=== PATIENT | male | born 1960 | race Caucasian/White ===

== ENCOUNTER 2021-02-06 21:33 | Emergency (ER) | payer OTHER ==
[~2021-02-06] VITALS: Ht 182.9 cm; Wt 122.5 kg
[2021-02-06 21:46] VITALS: BP_SYST 118
[2021-02-06] MEDS ORDERED: KETOROLAC TROMETHAMINE 60 MG/2 ML VIAL IM ONE (23:00)
[2021-02-06 23:47] LABS: BASOPHILS # (AUTO) 0.1 K/uL (0.0-0.2); BASOPHILS % (AUTO) 0.7 % (0.0-2.0); HEMATOCRIT 44.9 % (36-54); HEMOGLOBIN 15.6 g/dL (14.0-18.0); LYMPHOCYTES # (AUTO) 1.5 K/uL (1.0-5.5); LYMPHOCYTES % (AUTO) 14.1 % (20.5-51.5); MEAN CORPUSCULAR HEMOGLOBIN 31 pg (27-31); MEAN CORPUSCULAR HGB CONC 35 % (32-36); MEAN CORPUSCULAR VOLUME 90 fL (79.0-98.0); MONOCYTES # (AUTO) 0.5 K/uL (0.0-1.0); MONOCYTES % (AUTO) 5.1 % (1.7-9.3); NEUTROPHILS # (AUTO) 8.4 K/uL (1.8-7.7); NEUTROPHILS % (AUTO) 80.1 % (40.0-70.0); PLATELET COUNT (AUTO) 152 K/uL (130-430); WHITE BLOOD COUNT (AUTO) 10.5 K/uL (4.8-10.8)
[2021-02-06 23:53] LABS: CALCIUM 9.1 mg/dL (8.4-11.0); CREATININE 1.32 mg/dL (0.55-1.30); POTASSIUM 3.7 mmol/L (3.5-5.1)
[2021-02-06 23:58] LABS: INR 1.1 (0.80-1.20); PROTHROMBIN TIME 11.6 SECS (9.5-12.5)
[2021-02-06 23:59] LABS: ALBUMIN 3.5 g/dL (3.4-4.8); TOTAL BILIRUBIN 0.5 mg/dL (0.0-1.0)
[2021-02-07] MEDS ORDERED: VANCOMYCIN HCL 1,000 MG in NS 250 ML IV ONE (00:15)
[2021-02-07] MEDS ORDERED: VANCOMYCIN HCL 1000 MG/VIAL IV ONE (00:18)
[2021-02-07] MEDS ORDERED: CEPH250C PO ×2 (01:02)
[2021-02-07] MEDS ORDERED: SULF1TAB48 PO ×2 (01:02)
[2021-02-07] MEDS ORDERED: MORPHINE 4 MG INJ. 4 MG/ML VIAL IVP ONE (01:45)
[2021-02-07] MEDS ORDERED: MORPHINE 4 MG INJ. 4 MG/ML VIAL ONE (01:54)
[2021-02-07 02:31] VITALS: BP_SYST 118
[2021-02-08] MEDS ORDERED: HYDR-3917 PO (05:42)
[2021-02-08] MEDS ORDERED: ZAN4 PO (05:42)
== END 2021-02-07 02:31 | disposition home or self-care (01) ==
LOC: SED 21:33
DX: L03.115 Cellulitis of right lower limb (principal)
CPT/HCPCS: 36415; 80053; 85025; 85610; 85730; 87040; 93971; 96365; 96366; 96372; 96375; 99285; J1885; J2270; J3370

== ENCOUNTER 2021-02-08 02:31 | Inpatient (IN) | payer OTHER, SELFPAY ==
[~2021-02-08] VITALS: Ht 182.9 cm; Wt 122.5 kg
[~2021-02-08 02:31] MED LIST: CEPH250C PO; SULF1TAB48 PO
[2021-02-08 02:40] VITALS: BP_SYST 143
[2021-02-08] MEDS ORDERED: VANCOMYCIN HCL 1,000 MG in NS 250 ML IV ONE (04:15)
[2021-02-08] MEDS ORDERED: PIPERACILLIN/TAZO 3.375 GM in NS 50 ML IV ONE (04:15)
--- NOTE | 2021-02-08 04:45 | NUR ---
Patient to ER bed 2 to gown for evaluation. Side rails up.
--- NOTE | 2021-02-08 04:50 | NUR ---
Pt came into ER with complaint of right lower leg pain 10/10 with swelling and rash on lower leg extremity. Pt AAOX4 speaking full sentences.
--- NOTE | 2021-02-08 04:55 | NUR ---
ER at bedside examining patient.
--- NOTE | 2021-02-08 05:00 | NUR ---
# 20 gauge angiocath placed to LAC. Use of asceptic technique. Opsite placed over site. Blood return noted. Blood for lab drawn from site. Flushed with 10 cc of normal saline. No evidence of infiltration noted. Patient tolerated well.
--- NOTE | 2021-02-08 05:06 | NUR ---
Blood collected and sent to lab.
[2021-02-08] MEDS ORDERED: PIPERACILLIN/TAZOBACTAM 3.375 GM/VIAL (ZOSYN) IV ONE (05:12)
[2021-02-08] MEDS ORDERED: VANCOMYCIN HCL 1000 MG/VIAL IV ONE (05:12)
[2021-02-08 05:20] LABS: BASOPHILS % (AUTO) 0.4 % (0.0-2.0); EOSINOPHILS % (AUTO) 0.1 % (0.0-4.0); HEMATOCRIT 44.8 % (36-54); HEMOGLOBIN 15.4 g/dL (14.0-18.0); LYMPHOCYTES # (AUTO) 1.6 K/uL (1.0-5.5); LYMPHOCYTES % (AUTO) 15.8 % (20.5-51.5); MEAN CORPUSCULAR HEMOGLOBIN 31 pg (27-31); MEAN CORPUSCULAR HGB CONC 35 % (32-36); MEAN CORPUSCULAR VOLUME 90 fL (79.0-98.0); MONOCYTES # (AUTO) 0.8 K/uL (0.0-1.0); MONOCYTES % (AUTO) 7.2 % (1.7-9.3); NEUTROPHILS % (AUTO) 76.5 % (40.0-70.0); PLATELET COUNT (AUTO) 149 K/uL (130-430); RED BLOOD CELL COUNT(AUTO) 4.98 MIL/uL (4.2-6.2); WHITE BLOOD COUNT (AUTO) 10.4 K/uL (4.8-10.8)
[2021-02-08 05:34] LABS: CALCIUM 8.9 mg/dL (8.4-11.0); CREATININE 1.37 mg/dL (0.55-1.30); POTASSIUM 3.5 mmol/L (3.5-5.1)
[2021-02-08] MEDS ORDERED: ZAN4 PO (05:42)
[2021-02-08] MEDS ORDERED: HYDR-3917 PO (05:42)
--- NOTE | 2021-02-08 05:42 | NUR ---
Medication reconciliation completed with information provided by Huy HURD. Any prior medication reconciliation on file was reviewed and corrected.
[2021-02-08 05:45] LABS: ALBUMIN 3.2 g/dL (3.4-4.8); TOTAL BILIRUBIN 0.4 mg/dL (0.0-1.0)
[2021-02-08] MEDS ORDERED: KETOROLAC TROMETHAMINE 30 MG VIAL IVP ONE (05:45)
[2021-02-08] MEDS ORDERED: MORPHINE 4 MG INJ. 4 MG/ML VIAL IVP ONE (05:45)
[2021-02-08] MEDS ORDERED: NALOXONE HCL 0.4 MG/ML AMP (NARCAN) IVP PRN (08:15)
[2021-02-08] MEDS ORDERED: ACETAMINOPHEN 325 MG TABLET PO PRN ×2 (08:15→08:45)
[2021-02-08] MEDS ORDERED: NACL 0.9% 1,000 ML IV SCH (08:15)
[2021-02-08] MEDS ORDERED: ALBUTEROL SULFATE 0.083% 2.5 MG/3 ML VIAL.NEB INH PRN (08:15)
--- NOTE | 2021-02-08 08:50 | NUR ---
Patient will be admitted to care of Dr. Ramirez. Admitted to Medsurg unit. Will go to room 107B. Belongings list completed. Complete and up to date summary report printed. SBAR report to be given at bedside with opportunity for questions.
[2021-02-08 09:15] VITALS: BP_SYST 129
[2021-02-08] MEDS: ENOXAPARIN SODIUM 30 MG/0.3 ML SYRINGE SUBCUT SCH (09:25)
[2021-02-08] MEDS: MORPHINE 2 MG/ML INJ. SYRINGE IVP PRN ×2 (09:27→13:26)
--- NOTE | 2021-02-08 09:29 | NUR ---
Scheduled subq medication given. Patient medicated for 10/10 generalized pain as well. Patient stable at this time.
--- NOTE | 2021-02-08 09:55 | NUR ---
Patient resting comfortably in bed with eyes closed. No distress noted at this time.
--- NOTE | 2021-02-08 10:13 | NUR ---
CONSULTATION PAGED REASON FOR CONSULTATION:RULE OUT NEC FASCITES WAS CONSULT CALLED?Y PERSON WHO WAS NOTIFIED:JENI CONSULTING PHYSICIAN:FAVIAN MEDEL NUT SIFTER SPECIALTY:ID NUT SIFTER PHONE NUMBER:[phone] REQUESTING PHYSICIAN:VAHID DOMINIQUE
--- NOTE | 2021-02-08 11:05 | NUR ---
Patient asleep at this time. Stable.
--- NOTE | 2021-02-08 11:53 | NUR ---
CONSULTATION PAGED REASON FOR CONSULTATION:NEC FASCITIS WAS CONSULT CALLED?Y PERSON WHO WAS NOTIFIED:JULISSA CONSULTING PHYSICIAN: SHILA KINNEY TOOTH CUTTER PINION SPECIALTY:SURGEON TOOTH CUTTER PINION PHONE NUMBER:[phone] REQUESTING PHYSICIAN:DR TAYLOR
[2021-02-08] MEDS: PIPERACILLIN/TAZO 3.375/DEX-IS 50 ML IV SCH ×2 (12:09→17:11)
[2021-02-08 12:10] VITALS: BP_SYST 95
--- NOTE | 2021-02-08 12:10 | NUR ---
Scheduled IV abx given per order. Patient resting quietly in bed at this time.
--- NOTE | 2021-02-08 13:27 | NUR ---
Patient medicated for 10/10 generalized pain. Patient stable with family member at bedside.
--- NOTE | 2021-02-08 14:00 | NUR ---
Patient resting comfortably in bed at this time. States pain is subsiding /. Patient stable at this time.
--- NOTE | 2021-02-08 14:48 | NUR ---
PAGED PAGED VAHID DOMINIQUE AT [phone] SPOKE WITH ROSE MARIE.
--- NOTE | 2021-02-08 15:40 | NUR ---
Patient taken in stable condition for CT of right lower extremity.
[2021-02-08 16:15] VITALS: BP_SYST 132
--- NOTE | 2021-02-08 17:11 | NUR ---
Scheduled IV abx given per order. Patient requested medication for 10/10 right leg pain. Patient stable.
[2021-02-08] MEDS: MORPHINE 4 MG INJ. 4 MG/ML VIAL IVP PRN ×2 (17:19→21:24)
--- NOTE | 2021-02-08 17:20 | NUR ---
Patient medicated for 10/10 right leg pain. Patient stable with Dr. Ventura at bedside. Per doctor, elevate right leg.
[2021-02-08] MEDS: VANCOMYCIN HCL 1,250 MG in NS 250 ML IV SCH (17:48)
--- NOTE | 2021-02-08 17:55 | NUR ---
Scheduled IV abx given per order. Patient states pain is subsiding. Patient stable with at bedside.
--- NOTE | 2021-02-08 18:40 | NUR ---
Patient resting quietly in bed at this time. Patient stable since transfer to unit.
[2021-02-08 19:30] VITALS: BP_SYST 129
--- NOTE | 2021-02-08 19:45 | NUR ---
INITIAL NOTE AT INITIAL ASSESSMENT, PATIENT IS RESTING IN BED, STABLE, NO SIGNS OF RESPIRATORY DISTRESS. PATIENT VERBALIZES TOLERABLE PAIN. PLAN OF CARE FOR THE EVENING IS COMMUNICATED WITH THE PATIENT. PATIENT DEMONSTRATES CORRECT USAGE OF CALL LIGHT AT THIS TIME. BED IS LOCKED, ALARMED, AND AT THE LOWEST LEVEL. FALL SAFETY EDUCATION PROVIDED. FALL, SAFETY, AND RESPIRATORY PRECAUTIONS WILL BE TAKEN THROUGHOUT THE SHIFT.
[2021-02-09] VITALS: BP_SYST 120
[2021-02-09] MEDS: PIPERACILLIN/TAZO 3.375/DEX-IS 50 ML IV SCH ×5 (00:09→23:33)
[2021-02-09] MEDS: HYDROcodone/ACETAMIN 5-325 MG TAB (NORCO/ VICODIN) PO PRN ×2 (00:13→04:43)
[2021-02-09] MEDS: MORPHINE 4 MG INJ. 4 MG/ML VIAL IVP PRN ×2 (01:46→06:41)
[2021-02-09] MEDS: VANCOMYCIN HCL 1,250 MG in NS 250 ML IV SCH ×2 (05:17→18:33)
--- NOTE | 2021-02-09 06:40 | NUR ---
CLOSING NOTE PATIENT VERBALIZED THAT PRN MEDICATIONS GIVEN FOR PAIN WAS ABLE TO TAKE HIS PAIN DOWN TO PAIN LEVEL 5/10, WHICH HE STATES IS TOLERABLE PAIN. PATIENT SLEPT WELL THROUGHOUT THE SHIFT, NO SHORTNESS OF BREATH NOTED. AT THIS TIME, PATIENT IS RESTING IN BED, STABLE, NO SIGNS OF RESPIRATORY DISTRESS. CALL LIGHT IS WITHIN REACH. BED IS LOCKED, ALARMED, AND AT THE LOWEST LEVEL. FALL, SAFETY, AND RESPIRATORY PRECAUTIONS HAVE BEEN TAKEN THROUGHOUT THE SHIFT. WILL CONTINUE TO MONITOR UNTIL SHIFT REPORT IS GIVEN AT BEDSIDE TO AM NURSE.
[2021-02-09 07:30] LABS: ALBUMIN 2.2 g/dL (3.4-4.8); CALCIUM 8.1 mg/dL (8.4-11.0); CREATININE 1.12 mg/dL (0.55-1.30); TOTAL BILIRUBIN 0.7 mg/dL (0.0-1.0)
[2021-02-09 08:00] VITALS: BP_SYST 108
--- NOTE | 2021-02-09 08:48 | NUR ---
CONSULTATION PAGED REASON FOR CONSULTATION:CELLULITIS WAS CONSULT CALLED?Y PERSON WHO WAS NOTIFIED:ABIGAIL CONSULTING PHYSICIAN:FAVIAN MEDEL (SINDI HEREDIA COGNOS ANALYST) ORTHOTIC FINISH GRINDING TECHNICIAN SPECIALTY:INFECTIOUS DISEASE ORTHOTIC FINISH GRINDING TECHNICIAN PHONE NUMBER:[phone] REQUESTING PHYSICIAN:CELINE MANUEL
[2021-02-09] MEDS: ENOXAPARIN SODIUM 30 MG/0.3 ML SYRINGE SUBCUT SCH (08:50)
[2021-02-09] MEDS ORDERED: NALOXONE HCL 0.4 MG/ML AMP (NARCAN) IVP PRN ×2 (09:00)
[2021-02-09] MEDS ORDERED: HYDROcodone/ACETAMIN 5-325 MG TAB (NORCO/ VICODIN) PO PRN (09:00)
[2021-02-09] MEDS ORDERED: MORPHINE 2 MG/ML INJ. SYRINGE IVP PRN (09:00)
[2021-02-09 09:09] LABS: BASOPHILS % (AUTO) 0.4 % (0.0-2.0); EOSINOPHILS # (AUTO) 0.1 K/uL (0.0-0.4); EOSINOPHILS % (AUTO) 0.9 % (0.0-4.0); HEMOGLOBIN 13.2 g/dL (14.0-18.0); LYMPHOCYTES # (AUTO) 2.5 K/uL (1.0-5.5); LYMPHOCYTES % (AUTO) 24.7 % (20.5-51.5); MEAN CORPUSCULAR HEMOGLOBIN 30 pg (27-31); MEAN CORPUSCULAR HGB CONC 34 % (32-36); MEAN CORPUSCULAR VOLUME 90 fL (79.0-98.0); MONOCYTES % (AUTO) 10.2 % (1.7-9.3); NEUTROPHILS # (AUTO) 6.4 K/uL (1.8-7.7); NEUTROPHILS % (AUTO) 63.8 % (40.0-70.0); PLATELET COUNT (AUTO) 151 K/uL (130-430); RED BLOOD CELL COUNT(AUTO) 4.33 MIL/uL (4.2-6.2); RED CELL DISTRIBUTION WIDTH 14.3 % (9.0-15.0)
[2021-02-09] MEDS: FLUCONAZOLE 200 mg/ NS 100 ML IV SCH (11:32)
[2021-02-09] MEDS: OXYCODONE/ACETAMINOPHEN 5-325 TABLET PO PRN ×2 (11:33→18:33)
[2021-02-09 12:00] VITALS: BP_SYST 117
[2021-02-09 16:00] VITALS: BP_SYST 111
[2021-02-09] MEDS ORDERED: POTASSIUM CHLORIDE 20 MEQ TAB.PRT.SR PO ONE (19:15)
--- NOTE | 2021-02-09 19:20 | NUR ---
HIGH ALERT NOTE: Called Dr. Baker back at [phone] identified within the medical roster to verify physician authenticity.
--- NOTE | 2021-02-09 19:30 | NUR ---
CHANGE OF SHIFT; endorsed by day shift. IV antibiotic still in progress. came i for rt. leg cellulitis. no distress.
[2021-02-09 20:00] VITALS: BP_SYST 115
--- NOTE | 2021-02-09 20:00 | NUR ---
NOTES: pt. awake, alert. checked rt. leg swollen and skin discoloration, was just medicated for pain. on room air. urinal at bedside. IV site on left antecubital. call light at bedside.
--- NOTE | 2021-02-09 21:24 | NUR ---
NOTES: due medications given. IV on left ac to IV lock. call light within reach.
[2021-02-09 23:47] VITALS: BP_SYST 130
--- NOTE | 2021-02-09 23:52 | NUR ---
NOTES: pt. been dozing n and off. VS rechecked. due IV antibiotic start infusing.
[2021-02-10] MEDS: OXYCODONE/ACETAMINOPHEN 5-325 TABLET PO PRN ×2 (00:31→06:57)
--- NOTE | 2021-02-10 00:33 | NUR ---
NOTES: medicated with Percocet po for c/o rt. leg pain, elevated with pillow.
--- NOTE | 2021-02-10 03:30 | NUR ---
NOTES: pt. awakened with IV pump alarming. went back to sleep. continue to monitor,
[2021-02-10] MEDS: PIPERACILLIN/TAZO 3.375/DEX-IS 50 ML IV SCH (05:22)
[2021-02-10] MEDS: VANCOMYCIN HCL 1,250 MG in NS 250 ML IV SCH (06:05)
[2021-02-10 06:40] LABS: BASOPHILS % (AUTO) 0.4 % (0.0-2.0); EOSINOPHILS # (AUTO) 0.2 K/uL (0.0-0.4); HEMATOCRIT 38.7 % (36-54); HEMOGLOBIN 13.1 g/dL (14.0-18.0); LYMPHOCYTES # (AUTO) 1.7 K/uL (1.0-5.5); LYMPHOCYTES % (AUTO) 25.1 % (20.5-51.5); MEAN CORPUSCULAR HEMOGLOBIN 31 pg (27-31); MEAN CORPUSCULAR HGB CONC 34 % (32-36); MEAN CORPUSCULAR VOLUME 90 fL (79.0-98.0); MONOCYTES # (AUTO) 0.7 K/uL (0.0-1.0); NEUTROPHILS # (AUTO) 4.2 K/uL (1.8-7.7); NEUTROPHILS % (AUTO) 61.5 % (40.0-70.0); PLATELET COUNT (AUTO) 168 K/uL (130-430); WHITE BLOOD COUNT (AUTO) 6.8 K/uL (4.8-10.8)
[2021-02-10 07:07] LABS: CALCIUM 8.5 mg/dL (8.4-11.0); CREATININE 1.06 mg/dL (0.55-1.30); POTASSIUM 3.3 mmol/L (3.5-5.1)
[2021-02-10] MEDS: ENOXAPARIN SODIUM 30 MG/0.3 ML SYRINGE SUBCUT SCH (09:00)
[2021-02-10 09:14] LABS: ERYTHROCYTE SEDIMENTATION RATE 79 MM/HR (0-15)
[2021-02-10] MEDS ORDERED: AMOX-426 PO (09:20)
[2021-02-10] MEDS ORDERED: FLUC200T PO (09:20)
[2021-02-10] MEDS ORDERED: PERC10 PO (09:20)
[2021-02-10] MEDS ORDERED: HYDR-3927 PO (09:20)
[2021-02-10 10:06] VITALS: BP_SYST 108
[2021-02-10 10:16] LABS: C-REACTIVE PROTEIN QUANT 15.1 mg/dL (0-0.5)
[2021-02-10] MEDS: FLUCONAZOLE 200 mg/ NS 100 ML IV SCH (10:52)
--- NOTE | 2021-02-10 10:52 | NUR ---
Nutrition Update Leo Scale 17 noted. Pt admitted for cellulitis R foot. Diet: cardiac BMI: 36.6 kg/m2 RD to follow per nutrition care standards.
--- NOTE | 2021-02-10 11:11 | NUR ---
D/C Patient Patient given medication reconciliation form and D/C instructions. Exit Care provided. Patient verbalized understanding. MD discussed with patient the results and treatment provided. Ambulatory with steady gait for discharge to home. Patient in stable condition, ID band removed. IV catheter removed, intact and dressing applied, no active bleeding. Rx of Augmentin, [place], Percocet, Diflucan given. Patient educated on pain management. All belongings sent with patient.
== END 2021-02-10 11:11 | disposition home health service (06) | DRG 603 ==
LOC: SED 02:31 → SMU 05:27
PROVIDERS: ADMIT Internal Medicine Hospice and Palliative Medicine; ATTEND Internal Medicine Hospice and Palliative Medicine
DX: L03.115 Cellulitis of right lower limb (principal); B35.1 Tinea unguium; B36.9 Superficial mycosis, unspecified; N28.9 Disorder of kidney and ureter, unspecified; M77.31 Calcaneal spur, right foot; Z20.822 Contact with and (suspected) exposure to COVID-19
CPT/HCPCS: 36415; 73590-TC; 73700-TC; 76376; 80048; 80053; 80202; 83605; 85025; 85651-TC; 86140; 93970; 96365; 96367; 96375; 99285; J1450; J1650; J1885; J2270; J2543; J3370; J7050

== ENCOUNTER 2023-05-26 12:03 | Inpatient (IN) | payer OTHER ==
[~2023-05-26] VITALS: Ht 182.9 cm; Wt 128.8 kg
[~2023-05-26 12:03] MED LIST changes: -CEPH250C PO; +DOXY-244 PO; +HYDR-3927 PO; +PERC10 PO; -SULF1TAB48 PO; +VANC1PLA9 IV; +ZAN4 PO
[2023-05-26 12:13] VITALS: BP_SYST 136; PULSE 69; RESP 16; TEMP 97.8; O2SAT 98
[2023-05-26] MEDS ORDERED: KETOROLAC TROMETHAMINE 30 MG VIAL IVP ONE (14:15)
[2023-05-26] MEDS ORDERED: CEFAZOLIN 2 GM IVPB PREMIX 50 ML IV ONE (14:30)
[2023-05-26 14:44] LABS: BASOPHILS % (AUTO) 0.3 % (0.0-2.0); HEMATOCRIT 48.6 % (36-54); HEMOGLOBIN 15.9 g/dL (14.0-18.0); LYMPHOCYTES # (AUTO) 1.4 K/uL (1.0-5.5); LYMPHOCYTES % (AUTO) 11.7 % (20.5-51.5); MEAN CORPUSCULAR HEMOGLOBIN 30 pg (27-31); MEAN CORPUSCULAR HGB CONC 33 % (32-36); MEAN CORPUSCULAR VOLUME 90 fL (79.0-98.0); MONOCYTES # (AUTO) 0.6 K/uL (0.0-1.0); MONOCYTES % (AUTO) 5.2 % (1.7-9.3); NEUTROPHILS # (AUTO) 10.1 K/uL (1.8-7.7); NEUTROPHILS % (AUTO) 82.8 % (40.0-70.0); PLATELET COUNT (AUTO) 178 K/uL (130-430); RED BLOOD CELL COUNT(AUTO) 5.39 MIL/uL (4.2-6.2); RED CELL DISTRIBUTION WIDTH 14.8 % (9.0-15.0); WHITE BLOOD COUNT (AUTO) 12.2 K/uL (4.8-10.8)
[2023-05-26 14:54] LABS: ANION GAP 10 (5-15); CALCIUM 9.6 mg/dL (8.4-11.0); CARBON DIOXIDE 28 mmol/L (23-29); CHLORIDE 96 mmol/L (98-107); CREATININE 1.38 mg/dL (0.55-1.30); GFR AFRICAN AMERICAN 67 mL/min (>90); GLUCOSE 146 mg/dL (74-106); POTASSIUM 3.8 mmol/L (3.5-5.1); SODIUM SERUM 134 mmol/L (136-145); UREA NITROGEN, BLOOD 18 mg/dL (8-21)
[2023-05-26 15:01] LABS: ALANINE AMINOTRANSFERASE 55 U/L (12-78); ALBUMIN 3.8 g/dL (3.4-4.8); ASPARTATE AMINOTRANSFERASE 33 U/L (10-37); BILIRUBIN,DIRECT 0.2 mg/dL (0.0-0.3); GFR NON AFRICAN-AMERICAN 55 mL/min (>90); TOTAL BILIRUBIN 0.8 mg/dL (0.0-1.0); TOTAL PROTEIN, SERUM 8.4 g/dL (6.4-8.3)
[2023-05-26] MEDS ORDERED: NACL 0.9% 2,000 ML IV ONE (15:30)
[2023-05-26] MEDS ORDERED: ACETAMINOPHEN 650 MG/20.3 ML UDC GT PRN (17:15)
[2023-05-26] MEDS ORDERED: ACETAMINOPHEN 325 MG TABLET ONE (17:22)
[2023-05-26 20:00] VITALS: BP_SYST 136; PULSE 85; RESP 18; TEMP 97.9
[2023-05-26] MEDS ORDERED: HYDROcodone/ACETAMIN 5-325 MG TAB (NORCO/ VICODIN) PO PRN (20:45)
[2023-05-26] MEDS: 0.45% NACL 1,000 ML IV SCH (23:51)
[2023-05-26] MEDS ORDERED: cefTRIAXone 1 GM VIAL ONE (23:53)
[2023-05-26] MEDS ORDERED: VANCOMYCIN HCL 1000 MG/VIAL IV ONE (23:53)
[2023-05-27] VITALS (7 sets, daily range): BP systolic 99–127; PULSE 78–102; RESP 16–19; TEMP 98.1–102; O2SAT 93–96
[2023-05-27] MEDS: ACETAMINOPHEN 325 MG TABLET PO PRN ×3 (01:15→14:00)
[2023-05-27] MEDS: VANCOMYCIN HCL 1,000 MG in NS 250 ML IV SCH ×2 (02:11→11:13)
[2023-05-27 06:38] LABS: BASOPHILS % (AUTO) 0.3 % (0.0-2.0); HEMATOCRIT 39.6 % (36-54); HEMOGLOBIN 13.1 g/dL (14.0-18.0); LYMPHOCYTES # (AUTO) 1.2 K/uL (1.0-5.5); LYMPHOCYTES % (AUTO) 12.4 % (20.5-51.5); MEAN CORPUSCULAR HEMOGLOBIN 30 pg (27-31); MEAN CORPUSCULAR HGB CONC 33 % (32-36); MEAN CORPUSCULAR VOLUME 91 fL (79.0-98.0); MONOCYTES # (AUTO) 0.4 K/uL (0.0-1.0); MONOCYTES % (AUTO) 4.3 % (1.7-9.3); NEUTROPHILS # (AUTO) 8.1 K/uL (1.8-7.7); PLATELET COUNT (AUTO) 133 K/uL (130-430); RED BLOOD CELL COUNT(AUTO) 4.36 MIL/uL (4.2-6.2); RED CELL DISTRIBUTION WIDTH 14.4 % (9.0-15.0); WHITE BLOOD COUNT (AUTO) 9.8 K/uL (4.8-10.8)
[2023-05-27 07:11] LABS: ALBUMIN 2.7 g/dL (3.4-4.8); CALCIUM 8.4 mg/dL (8.4-11.0); CREATININE 1.19 mg/dL (0.55-1.30); POTASSIUM 3.7 mmol/L (3.5-5.1); TOTAL BILIRUBIN 0.4 mg/dL (0.0-1.0); TOTAL PROTEIN, SERUM 6.4 g/dL (6.4-8.3)
[2023-05-27] MEDS ORDERED: ONDANSETRON HCL 4 MG/2 ML VIAL IVP PRN (08:00)
[2023-05-27] MEDS ORDERED: LORazepam 2 MG/ML VIAL IVP PRN (08:00)
[2023-05-27] MEDS ORDERED: ACETAMINOPHEN 325 MG TABLET PO PRN (08:00)
[2023-05-27] MEDS ORDERED: HYDROcodone/ACETAMIN 5-325 MG TAB (NORCO/ VICODIN) PO PRN (08:00)
[2023-05-27] MEDS ORDERED: NALOXONE HCL 0.4 MG/ML AMP (NARCAN) IVP PRN ×2 (08:00)
[2023-05-27] MEDS: HYDROcodone/ACETAMIN 5-325 MG TAB (NORCO/ VICODIN) PO PRN (11:12)
[2023-05-27] MEDS: 0.45% NACL 1,000 ML IV SCH ×2 (13:57→22:06)
[2023-05-27] MEDS: NORMAL SALINE 5 ML DISP.SYRIN IVF SCH ×2 (13:57→21:13)
[2023-05-27] MEDS ORDERED: IBUPROFEN 600 MG TABLET PO PRN (20:45)
[2023-05-28 00:21] VITALS: BP_SYST 101; PULSE 70; RESP 19; TEMP 98.2; O2SAT 95
[2023-05-28] MEDS: VANCOMYCIN HCL 1,000 MG in NS 250 ML IV SCH ×2 (01:26→11:27)
[2023-05-28] MEDS: HYDROcodone/ACETAMIN 5-325 MG TAB (NORCO/ VICODIN) PO PRN ×4 (03:50→20:29)
[2023-05-28] MEDS: NORMAL SALINE 5 ML DISP.SYRIN IVF SCH ×2 (06:17→14:10)
[2023-05-28 06:21] LABS: BASOPHILS % (AUTO) 0.4 % (0.0-2.0); EOSINOPHILS % (AUTO) 0.5 % (0.0-4.0); HEMOGLOBIN 13.6 g/dL (14.0-18.0); LYMPHOCYTES # (AUTO) 1.9 K/uL (1.0-5.5); LYMPHOCYTES % (AUTO) 23.3 % (20.5-51.5); MEAN CORPUSCULAR HEMOGLOBIN 29 pg (27-31); MEAN CORPUSCULAR HGB CONC 32 % (32-36); MEAN CORPUSCULAR VOLUME 91 fL (79.0-98.0); MONOCYTES # (AUTO) 0.7 K/uL (0.0-1.0); MONOCYTES % (AUTO) 8.8 % (1.7-9.3); NEUTROPHILS # (AUTO) 5.5 K/uL (1.8-7.7); PLATELET COUNT (AUTO) 140 K/uL (130-430); RED BLOOD CELL COUNT(AUTO) 4.63 MIL/uL (4.2-6.2); RED CELL DISTRIBUTION WIDTH 14.6 % (9.0-15.0); WHITE BLOOD COUNT (AUTO) 8.1 K/uL (4.8-10.8)
[2023-05-28 06:48] LABS: CREATININE 1.06 mg/dL (0.55-1.30); POTASSIUM 3.6 mmol/L (3.5-5.1)
[2023-05-28 08:30] VITALS: BP_SYST 123; PULSE 80; RESP 18; TEMP 97.5; O2SAT 95
[2023-05-28] MEDS: 0.45% NACL 1,000 ML IV SCH ×2 (08:43→15:15)
[2023-05-28 10:33] VITALS: O2SAT 95
[2023-05-28 12:16] VITALS: BP_SYST 121; PULSE 70; RESP 16; TEMP 98.2; O2SAT 95
[2023-05-28] MEDS: PIPERACILLIN/TAZO 4.5GM/DEX-IS 100 ML IV SCH ×2 (14:11→23:11)
[2023-05-28 16:45] VITALS: BP_SYST 117; PULSE 67; RESP 18; TEMP 98.7; O2SAT 97
[2023-05-28 20:00] VITALS: BP_SYST 121; PULSE 72; RESP 18; TEMP 98.5; O2SAT 96; O2SAT 97
[2023-05-28] MEDS: VANCOMYCIN HCL 1,250 MG in NS 250 ML IV SCH (20:49)
[2023-05-29] VITALS: BP_SYST 103; PULSE 82; RESP 16; TEMP 97.4; O2SAT 97
[2023-05-29] MEDS: NORMAL SALINE 5 ML DISP.SYRIN IVF SCH ×4 (00:51→23:17)
[2023-05-29] MEDS: 0.45% NACL 1,000 ML IV SCH ×3 (00:52→15:39)
[2023-05-29] MEDS: VANCOMYCIN HCL 1,250 MG in NS 250 ML IV SCH ×3 (03:33→21:01)
[2023-05-29 06:08] LABS: BASOPHILS % (AUTO) 0.5 % (0.0-2.0); EOSINOPHILS # (AUTO) 0.1 K/uL (0.0-0.4); EOSINOPHILS % (AUTO) 2.2 % (0.0-4.0); HEMOGLOBIN 12.7 g/dL (14.0-18.0); LYMPHOCYTES # (AUTO) 1.8 K/uL (1.0-5.5); LYMPHOCYTES % (AUTO) 26.7 % (20.5-51.5); MEAN CORPUSCULAR HEMOGLOBIN 29 pg (27-31); MEAN CORPUSCULAR HGB CONC 33 % (32-36); MEAN CORPUSCULAR VOLUME 90 fL (79.0-98.0); MONOCYTES # (AUTO) 0.7 K/uL (0.0-1.0); MONOCYTES % (AUTO) 10.7 % (1.7-9.3); NEUTROPHILS % (AUTO) 59.9 % (40.0-70.0); PLATELET COUNT (AUTO) 151 K/uL (130-430); RED BLOOD CELL COUNT(AUTO) 4.32 MIL/uL (4.2-6.2); RED CELL DISTRIBUTION WIDTH 14.6 % (9.0-15.0); WHITE BLOOD COUNT (AUTO) 6.6 K/uL (4.8-10.8)
[2023-05-29] MEDS: PIPERACILLIN/TAZO 4.5GM/DEX-IS 100 ML IV SCH ×3 (06:20→23:16)
[2023-05-29 06:42] LABS: ALBUMIN 2.4 g/dL (3.4-4.8); CALCIUM 8.7 mg/dL (8.4-11.0); CREATININE 1.07 mg/dL (0.55-1.30); POTASSIUM 3.5 mmol/L (3.5-5.1); TOTAL BILIRUBIN 0.4 mg/dL (0.0-1.0); TOTAL PROTEIN, SERUM 6.3 g/dL (6.4-8.3)
[2023-05-29 08:00] VITALS: BP_SYST 139; PULSE 85; RESP 16; TEMP 98.4; O2SAT 97
[2023-05-29] MEDS: HYDROcodone/ACETAMIN 5-325 MG TAB (NORCO/ VICODIN) PO PRN ×3 (08:26→21:11)
[2023-05-29] MEDS ORDERED: TRIAMCINOLONE ACETONIDE 0.025% 80 GM CREAM.GM. TP ONE (10:30)
[2023-05-29 16:00] VITALS: BP_SYST 127; PULSE 73; RESP 16; TEMP 98.2; O2SAT 96
[2023-05-29 20:00] VITALS: BP_SYST 129; PULSE 76; RESP 18; TEMP 98.6; O2SAT 98
[2023-05-29] MEDS: TRIAMCINOLONE ACETONIDE 0.025% 80 GM CREAM.GM. TP SCH (21:13)
[2023-05-30] VITALS: BP_SYST 121; PULSE 72; RESP 16; TEMP 98.6; O2SAT 96
[2023-05-30] MEDS: VANCOMYCIN HCL 1,250 MG in NS 250 ML IV SCH ×2 (04:37→11:25)
[2023-05-30] MEDS ORDERED: NORMAL SALINE 5 ML DISP.SYRIN IVF SCH (06:00)
[2023-05-30] MEDS: PIPERACILLIN/TAZO 4.5GM/DEX-IS 100 ML IV SCH ×3 (06:21→23:10)
[2023-05-30] MEDS: NORMAL SALINE 5 ML DISP.SYRIN IVF SCH ×3 (06:21→22:56)
[2023-05-30] MEDS: HYDROcodone/ACETAMIN 5-325 MG TAB (NORCO/ VICODIN) PO PRN ×3 (06:25→20:33)
[2023-05-30 07:28] LABS: CALCIUM 8.4 mg/dL (8.4-11.0); CREATININE 0.97 mg/dL (0.55-1.30); POTASSIUM 3.8 mmol/L (3.5-5.1)
[2023-05-30 07:47] VITALS: BP_SYST 126; PULSE 81; RESP 16; TEMP 98.8; O2SAT 95
[2023-05-30 08:08] LABS: BASOPHILS % (AUTO) 0.6 % (0.0-2.0); EOSINOPHILS # (AUTO) 0.2 K/uL (0.0-0.4); EOSINOPHILS % (AUTO) 2.6 % (0.0-4.0); HEMATOCRIT 40.9 % (36-54); HEMOGLOBIN 13.2 g/dL (14.0-18.0); LYMPHOCYTES # (AUTO) 1.8 K/uL (1.0-5.5); MEAN CORPUSCULAR HEMOGLOBIN 30 pg (27-31); MEAN CORPUSCULAR HGB CONC 32 % (32-36); MEAN CORPUSCULAR VOLUME 91 fL (79.0-98.0); MONOCYTES # (AUTO) 0.6 K/uL (0.0-1.0); MONOCYTES % (AUTO) 8.5 % (1.7-9.3); NEUTROPHILS # (AUTO) 4.8 K/uL (1.8-7.7); NEUTROPHILS % (AUTO) 64.3 % (40.0-70.0); PLATELET COUNT (AUTO) 198 K/uL (130-430); RED BLOOD CELL COUNT(AUTO) 4.49 MIL/uL (4.2-6.2); RED CELL DISTRIBUTION WIDTH 14.6 % (9.0-15.0); WHITE BLOOD COUNT (AUTO) 7.4 K/uL (4.8-10.8)
[2023-05-30 08:20] LABS: ERYTHROCYTE SEDIMENTATION RATE 21 MM/HR (0-15)
[2023-05-30] MEDS: TRIAMCINOLONE ACETONIDE 0.025% 80 GM CREAM.GM. TP SCH ×2 (09:09→20:33)
[2023-05-30 11:22] VITALS: BP_SYST 133; PULSE 70; RESP 14; TEMP 98; O2SAT 97
[2023-05-30 15:58] VITALS: BP_SYST 141; PULSE 79; RESP 16; TEMP 98; O2SAT 97
[2023-05-30] MEDS ORDERED: DIPHENHYDRAMINE HCL 50 MG CAPSULE ONE (16:55)
[2023-05-30] MEDS: DAPTOmycin 700 MG in NS 50 ML IV SCH (17:42)
[2023-05-30 20:00] VITALS: BP_SYST 136; PULSE 61; RESP 20; TEMP 97.4; O2SAT 98
[2023-05-30] MEDS: DIPHENHYDRAMINE HCL 25 MG CAPSULE PO PRN (23:11)
[2023-05-31] VITALS (7 sets, daily range): BP systolic 125–137; PULSE 61–93; RESP 18–20; TEMP 96.2–98.1; O2SAT 96–98
[2023-05-31] MEDS: NORMAL SALINE 5 ML DISP.SYRIN IVF SCH ×3 (06:02→21:24)
[2023-05-31] MEDS: HYDROcodone/ACETAMIN 5-325 MG TAB (NORCO/ VICODIN) PO PRN ×4 (06:03→20:21)
[2023-05-31] MEDS: PIPERACILLIN/TAZO 4.5GM/DEX-IS 100 ML IV SCH ×3 (06:49→21:17)
[2023-05-31 06:55] LABS: CALCIUM 8.5 mg/dL (8.4-11.0); CREATININE 0.94 mg/dL (0.55-1.30); POTASSIUM 3.4 mmol/L (3.5-5.1)
[2023-05-31 07:01] LABS: BASOPHILS % (AUTO) 0.4 % (0.0-2.0); EOSINOPHILS # (AUTO) 0.3 K/uL (0.0-0.4); EOSINOPHILS % (AUTO) 3.3 % (0.0-4.0); HEMATOCRIT 38.8 % (36-54); HEMOGLOBIN 12.7 g/dL (14.0-18.0); LYMPHOCYTES # (AUTO) 1.7 K/uL (1.0-5.5); LYMPHOCYTES % (AUTO) 21.4 % (20.5-51.5); MEAN CORPUSCULAR HEMOGLOBIN 30 pg (27-31); MEAN CORPUSCULAR HGB CONC 33 % (32-36); MEAN CORPUSCULAR VOLUME 90 fL (79.0-98.0); MONOCYTES # (AUTO) 0.6 K/uL (0.0-1.0); MONOCYTES % (AUTO) 7.5 % (1.7-9.3); NEUTROPHILS # (AUTO) 5.5 K/uL (1.8-7.7); NEUTROPHILS % (AUTO) 67.4 % (40.0-70.0); PLATELET COUNT (AUTO) 235 K/uL (130-430); RED BLOOD CELL COUNT(AUTO) 4.31 MIL/uL (4.2-6.2); RED CELL DISTRIBUTION WIDTH 14.6 % (9.0-15.0); WHITE BLOOD COUNT (AUTO) 8.2 K/uL (4.8-10.8)
[2023-05-31 07:31] LABS: ERYTHROCYTE SEDIMENTATION RATE 59 MM/HR (0-15)
[2023-05-31] MEDS: TRIAMCINOLONE ACETONIDE 0.025% 80 GM CREAM.GM. TP SCH ×2 (08:42→20:19)
[2023-05-31] MEDS ORDERED: POTASSIUM CHLORIDE 20 MEQ TABLET.ER PO ONE (11:00)
[2023-05-31] MEDS: DAPTOmycin 700 MG in NS 50 ML IV SCH (17:36)
[2023-05-31] MEDS: DIPHENHYDRAMINE HCL 25 MG CAPSULE PO PRN (23:20)
[2023-06-01] VITALS: BP_SYST 126; PULSE 74; RESP 18; TEMP 97.8; O2SAT 94
[2023-06-01] MEDS: PIPERACILLIN/TAZO 4.5GM/DEX-IS 100 ML IV SCH ×3 (05:26→22:00)
[2023-06-01] MEDS: NORMAL SALINE 5 ML DISP.SYRIN IVF SCH ×4 (05:26→22:12)
[2023-06-01 05:30] LABS: ERYTHROCYTE SEDIMENTATION RATE 42 MM/HR (0-15)
[2023-06-01] MEDS: HYDROcodone/ACETAMIN 5-325 MG TAB (NORCO/ VICODIN) PO PRN ×3 (05:33→22:11)
[2023-06-01 05:38] LABS: BASOPHILS # (AUTO) 0.1 K/uL (0.0-0.2); BASOPHILS % (AUTO) 0.6 % (0.0-2.0); EOSINOPHILS # (AUTO) 0.3 K/uL (0.0-0.4); EOSINOPHILS % (AUTO) 3.6 % (0.0-4.0); HEMATOCRIT 37.5 % (36-54); HEMOGLOBIN 12.3 g/dL (14.0-18.0); LYMPHOCYTES # (AUTO) 2.2 K/uL (1.0-5.5); LYMPHOCYTES % (AUTO) 25.1 % (20.5-51.5); MEAN CORPUSCULAR HEMOGLOBIN 30 pg (27-31); MEAN CORPUSCULAR HGB CONC 33 % (32-36); MEAN CORPUSCULAR VOLUME 90 fL (79.0-98.0); MONOCYTES # (AUTO) 0.7 K/uL (0.0-1.0); MONOCYTES % (AUTO) 8.3 % (1.7-9.3); NEUTROPHILS # (AUTO) 5.4 K/uL (1.8-7.7); NEUTROPHILS % (AUTO) 62.4 % (40.0-70.0); PLATELET COUNT (AUTO) 268 K/uL (130-430); RED BLOOD CELL COUNT(AUTO) 4.17 MIL/uL (4.2-6.2); RED CELL DISTRIBUTION WIDTH 14.5 % (9.0-15.0); WHITE BLOOD COUNT (AUTO) 8.6 K/uL (4.8-10.8)
[2023-06-01 06:12] LABS: ALBUMIN 2.6 g/dL (3.4-4.8); CALCIUM 8.7 mg/dL (8.4-11.0); CREATININE 1.05 mg/dL (0.55-1.30); POTASSIUM 3.7 mmol/L (3.5-5.1); TOTAL BILIRUBIN 0.4 mg/dL (0.0-1.0); TOTAL PROTEIN, SERUM 6.8 g/dL (6.4-8.3)
[2023-06-01 08:00] VITALS: BP_SYST 126; PULSE 96; RESP 18; TEMP 98.2; O2SAT 96
[2023-06-01] MEDS: DIPHENHYDRAMINE HCL 25 MG CAPSULE PO PRN (08:59)
[2023-06-01] MEDS: TRIAMCINOLONE ACETONIDE 0.025% 80 GM CREAM.GM. TP SCH ×2 (08:59→22:12)
[2023-06-01 11:00] VITALS: BP_SYST 118; PULSE 80; RESP 16; TEMP 99.1; O2SAT 95
[2023-06-01 15:19] VITALS: BP_SYST 115; PULSE 79; RESP 16; TEMP 99.4; O2SAT 94
[2023-06-01] MEDS: DAPTOmycin 700 MG in NS 50 ML IV SCH (17:57)
[2023-06-01 20:00] VITALS: BP_SYST 141; PULSE 82; RESP 18; TEMP 97.7; O2SAT 98
[2023-06-01] MEDS ORDERED: DIPHENHYDRAMINE INJ 50 MG/ML VIAL IVP PRN (21:45)
[2023-06-01] MEDS ORDERED: DIPHENHYDRAMINE INJ 50 MG/ML VIAL ONE (22:26)
[2023-06-02] VITALS: BP_SYST 113; PULSE 78; RESP 17; TEMP 97.3; O2SAT 96
[2023-06-02 04:11] LABS: BASOPHILS % (AUTO) 0.5 % (0.0-2.0); EOSINOPHILS # (AUTO) 0.3 K/uL (0.0-0.4); EOSINOPHILS % (AUTO) 3.6 % (0.0-4.0); HEMATOCRIT 38.4 % (36-54); HEMOGLOBIN 12.4 g/dL (14.0-18.0); LYMPHOCYTES # (AUTO) 2.6 K/uL (1.0-5.5); LYMPHOCYTES % (AUTO) 31.1 % (20.5-51.5); MEAN CORPUSCULAR HEMOGLOBIN 29 pg (27-31); MEAN CORPUSCULAR HGB CONC 32 % (32-36); MEAN CORPUSCULAR VOLUME 90 fL (79.0-98.0); MONOCYTES # (AUTO) 0.8 K/uL (0.0-1.0); MONOCYTES % (AUTO) 8.9 % (1.7-9.3); NEUTROPHILS # (AUTO) 4.7 K/uL (1.8-7.7); NEUTROPHILS % (AUTO) 55.9 % (40.0-70.0); PLATELET COUNT (AUTO) 316 K/uL (130-430); RED BLOOD CELL COUNT(AUTO) 4.26 MIL/uL (4.2-6.2); RED CELL DISTRIBUTION WIDTH 14.4 % (9.0-15.0); WHITE BLOOD COUNT (AUTO) 8.4 K/uL (4.8-10.8)
[2023-06-02 04:41] LABS: CALCIUM 8.8 mg/dL (8.4-11.0); CREATININE 1.02 mg/dL (0.55-1.30); POTASSIUM 3.6 mmol/L (3.5-5.1)
[2023-06-02] MEDS: NORMAL SALINE 5 ML DISP.SYRIN IVF SCH (06:00)
[2023-06-02] MEDS: PIPERACILLIN/TAZO 4.5GM/DEX-IS 100 ML IV SCH ×2 (06:00→07:37)
[2023-06-02 08:00] VITALS: BP_SYST 134; PULSE 59; RESP 18; TEMP 98.4; O2SAT 96
[2023-06-02] MEDS: HYDROcodone/ACETAMIN 5-325 MG TAB (NORCO/ VICODIN) PO PRN (08:51)
[2023-06-02] MEDS: TRIAMCINOLONE ACETONIDE 0.025% 80 GM CREAM.GM. TP SCH (08:51)
[2023-06-02] MEDS: DIPHENHYDRAMINE HCL 25 MG CAPSULE PO PRN (11:34)
[2023-06-02 13:25] LABS: PROTHROMBIN TIME 10.5 SECS (9.5-12.5)
[2023-06-02 13:52] VITALS: BP_SYST 134; PULSE 59; RESP 18; TEMP 98.4; O2SAT 96
== END 2023-06-02 14:25 | disposition home health service (06) | DRG 871 ==
LOC: SED 12:03 → SMU 16:02
PROVIDERS: ADMIT Specialist; ATTEND Specialist
PROC: 05HY33Z Insertion of Infusion Device into Upper Vein, Percutaneous Approach (ICD-10-PCS; principal; 2023-06-02)
PROC: B54MZZA Ultrasonography of Right Upper Extremity Veins, Guidance (ICD-10-PCS; 2023-06-02)
DX: A41.9 Sepsis, unspecified organism (principal); E43 Unspecified severe protein-calorie malnutrition; N17.0 Acute kidney failure with tubular necrosis; L03.115 Cellulitis of right lower limb; E87.20 Acidosis, unspecified; E87.1 Hypo-osmolality and hyponatremia; G89.29 Other chronic pain; M54.9 Dorsalgia, unspecified; L85.3 Xerosis cutis; E11.65 Type 2 diabetes mellitus with hyperglycemia; I89.0 Lymphedema, not elsewhere classified; I87.8 Other specified disorders of veins; E88.09 Other disorders of plasma-protein metabolism, not elsewhere classified; Z68.38 Body mass index [BMI] 38.0-38.9, adult
CPT/HCPCS: 36415; 71045; 73700-TC; 76376; 80048; 80053; 80076; 80202; 82550; 83037; 83605; 84484; 85025; 85610-TC; 85651-TC; 85730-TC; 87040; 93005; 93971; 96365; 96375; 99285; J0690; J0696; J0878; J1200; J1885; J2543; J3370; J7050; J7060; Q0163